=== PATIENT | female | born 1950 | race Caucasian/White ===

== ENCOUNTER → 2016-12-28 | Outpatient (CLI) | payer OTHER | LOC: BMCIMAGING 07:50 | PROVIDERS: ATTEND Family Medicine | DX: Z12.31 Encounter for screening mammogram for malignant neoplasm of breast (principal); Z80.3 Family history of malignant neoplasm of breast | CPT/HCPCS: G0202 ==

== ENCOUNTER → 2017-05-16 | Outpatient (CLI) | payer OTHER | LOC: FIMAGING 08:39 | PROVIDERS: ATTEND Family Medicine | DX: M12.9 Arthropathy, unspecified (principal); M51.37 Other intervertebral disc degeneration, lumbosacral region ==

== ENCOUNTER → 2017-07-19 | Outpatient (CLI) | payer OTHER | LOC: FIMAGING 07:56 | PROVIDERS: ATTEND Family Medicine | DX: M51.16 Intervertebral disc disorders with radiculopathy, lumbar region (principal); M51.17 Intervertebral disc disorders with radiculopathy, lumbosacral region; E80.4 Gilbert syndrome ==

== ENCOUNTER → 2017-11-09 | Outpatient (CLI) | payer OTHER | LOC: FIMAGING 12:04 | PROVIDERS: ATTEND Family Medicine | DX: N63.11 Unspecified lump in the right breast, upper outer quadrant (principal) ==

== ENCOUNTER → 2017-11-20 | Outpatient (CLI) | payer OTHER ==
[~2017-11-20] MED LIST: BUPIVACAINE 0.5% 10 ML SDV ONE; LIDOCAINE 1% 300 MG/30 ML SDV ONE; THROMBIN (BOVINE) 5,000 UNIT VIAL TP ONE
== END ==
LOC: FIMAGING 07:14
PROVIDERS: ATTEND Family Medicine
PROC: 07B53ZX Excision of Right Axillary Lymphatic, Percutaneous Approach, Diagnostic (ICD-10-PCS; principal; 2017-11-20)
PROC: 0HBT3ZX Excision of Right Breast, Percutaneous Approach, Diagnostic (ICD-10-PCS; principal; 2017-11-20)
DX: C50.511 Malignant neoplasm of lower-outer quadrant of right female breast (principal)

== ENCOUNTER → 2018-01-09 | Outpatient (CLI) | payer OTHER | LOC: FIMAGING 14:33 | PROVIDERS: ATTEND Surgery | DX: Z45.2 Encounter for adjustment and management of vascular access device (principal) ==

== ENCOUNTER 2018-01-18 22:57 | Inpatient (IN) | payer OTHER ==
[2018-01-18] MEDS ORDERED: NS 1,000 ML IV ONE (23:07)
--- NOTE | 2018-01-18 23:08 | EDPHY ---
H & P Stated Complaint: CP, ELEV HR/LAST CHEMO 6TH Time Seen by Provider: 01/18/18 23:08 HPI/ROS: HPI CHIEF COMPLAINT: Tachycardia HISTORY OF PRESENT ILLNESS: 67-year-old female presents emergency room with a fast heart rate. Patient states she noticed earlier this evening that her heart rate was very fast in the 120s. This is unusual for her. She states she just started chemotherapy. 1st dose of chemotherapy for breast cancer was on January 11. She does report that she has felt some chest discomfort. In the middle of her chest with this this evening. She denies any pleuritic pain, denies shortness of breath, denies fever. She has had some loose stools. Denies vomiting, denies feeling ill. She did have muscle aches and joint pain after 1st dose of chemotherapy. She is followed by Dr. Maharaj. Past Medical History: Denies significant medical history but recently diagnosed breast cancer. Patient states that his stage I. Past Surgical History: Lumpectomy left breast. Guzman dissection. Left chest port Social History: Denies drugs alcohol tobacco. Family History: Noncontributory ROS REVIEW OF SYSTEMS: 10 Systems were reviewed and negative with the exception of the elements mentioned in the history of present illness. Exam Constitutional nontoxic appearing, triage nursing summary reviewed, vital signs reviewed, awake/alert. Vital signs noted to be tachycardic at triage and hypoxic 91%. Eyes normal conjunctivae and sclera, EOMI, PERRLA. HENT normal inspection, atraumatic, moist mucus membranes, no epistaxis, neck supple/ no meningismus, no raccoon eyes. Respiratory clear to auscultation bilaterally, normal breath sounds, no respiratory distress, no wheezing. Cardiovascular tachycardia, regular rhythm, no murmur, no edema, distal pulses normal. Gastrointestinal soft, non-tender, no rebound, no guarding, normal bowel sounds, no distension, no pulsatile mass. Genitourinary no CVA tenderness. Musculoskeletal no midline vertebral tenderness, full range of motion, no calf swelling, no tenderness of extremities, no meningismus, good pulses, neurovascularly intact. Skin pink, warm, & dry, no rash, skin atraumatic. Neurologic awake, alert and oriented x 3, AAOx3, moves all 4 extremities equally, motor intact, sensory intact, CN II-XII intact, normal cerebellar, normal vision, normal speech. Psychiatric normal mood/affect. Heme/Lymph/Immune no lymphadenopathy. Differential diagnosis includes but is not limited to: Pulmonary embolism ACS , atypical chest pain, pneumothorax, pneumonia, pulmonary embolism, aortic dissection, congestive heart failure, tumor, musculoskeletal pain, esophageal pain, GERD, peptic ulcer disease, pancreatitis Medical Decision Making: Plan for this patient high suspicion for pulmonary embolism giving room air sat 91%, tachycardia, underlying breast cancer, on chemotherapy, hormone replacement. Will send a D-dimer but most likely will proceed with CT angiogram of the chest to rule out PE. Additionally rule out pericardial effusion. Rule out ACS. Will obtain EKG, chest x-ray, troponin, D- dimer. IV fluid bolus. Re-evaluation: EKG interpretation by me on record in [employer] system. Impression time of EKG 2313, sinus tach [address] depression in lead V3 V4. No ST elevation. ED x-ray chest one view: Negative for acute cardiopulmonary disease. Normal cardiac silhouette. Port appears in the appropriate position. No evidence of pneumonia. Patient's blood work reviewed. Negative troponin. Patient has a positive D- dimer. In the setting of tachycardia with positive D-dimer history of hormone replacement and cancer proceed with CT angiogram of the chest rule out PE. CT angiogram of the chest: This shows no evidence of pulmonary embolism. Called to me by Dr. Womack EKG interpretation by me on record in [employer] system. Impression time of EKG 1:38am, sinus rhythm rate of 84, T-wave inversion lead 3. Subtle T-wave inversion in AVF. No ST elevation. Otherwise unremarkable EKG. 0229: Patient re-evaluated she remains tachycardic. Heart rate currently 102. Blood pressure somewhat soft 95/50. When she exerts herself or gets Up and walks heart rate goes to 120s. Sinus tach. Given that she is getting chemotherapy, has a left shift with bandemia on her white count, urinalysis concerning for UT I. I have sent a urine culture. Blood cultures. 1 g Rocephin has been given. Plan on admitting to the hospital for ongoing tachycardia. She is afebrile here. She has received 2 L of fluid. Still remains tachycardic. She does not appear toxic. Source: Patient - Personal History Current Tetanus Diphtheria and Acellular Pertussis (TDAP): Yes - Medical/Surgical History Hx Asthma: No Hx Chronic Respiratory Disease: No Hx Diabetes: No Hx Cardiac Disease: No Hx Renal Disease: No Hx Cirrhosis: No Hx Alcoholism: No Hx HIV/AIDS: No Hx Splenectomy or Spleen Trauma: No Other PMH: HTN, post menopausal, BREAST CA R LYMPH NODES, NO BP OR STICK ON R. PSHx: laproscopy for "film over tubes" 33 ya - Social History Smoking Status: Never smoked Constitutional: Initial Vital Signs Temperature (C) 36.9 C 01/18/18 23:00 Heart Rate 115 H 01/18/18 23:00 Respiratory Rate 16 01/18/18 23:00 Blood Pressure 113/70 01/18/18 23:00 O2 Sat (%) 91 L 01/18/18 23:00 O2 Delivery Mode Room Air Allergies/Adverse Reactions: No Known Allergies Allergy (Verified 01/19/18 09:49) Home Medications: Medication Instructions Recorded Hydrochlorothiazide [HCTZ (*)] 12.5 mg PO DAILY 06/18/15 Acetaminophen [Tylenol 325mg (*)] 650 mg PO Q6HRS PRN 01/19/18 Docetaxel 1 each IV Q21D 01/19/18 Herbals/Supplements -Info Only 1 ea PO DAILY 01/19/18 Loratadine [Claritin 10 mg] 10 mg PO DAILY 01/19/18 Multivitamins [Multivitamin (*)] 1 each PO DAILY 01/19/18 Pegfilgrastim [Neulasta] 6 mg SQ Q21D 01/19/18 Prochlorperazine Maleate 10 mg PO TID PRN 01/19/18 [Compazine 10mg (*)] Medical Decision Making - Data Points Laboratory Results: Laboratory Results 01/18/18 23:45 01/18/18 23:45 Medications Given: Enoxaparin Sodium (Lovenox) 40 mg SC DAILY MAYA Stop: 07/18/18 15:29 Last Admin: 01/19/18 18:02 Dose: Not Given Sodium Chloride (Ns) 1,000 mls @ 75 mls/hr IV CONT MAYA Stop: 07/18/18 02:59 Last Admin: 01/19/18 04:57 Dose: 1,000 mls Ceftriaxone Sodium/Dextrose (Rocephin 1 Gm (Premix)) 50 mls @ 100 mls/hr IV DAILY MAYA PRN Reason: Protocol Stop: 02/18/18 21:59 Last Admin: 01/19/18 21:12 Dose: Not Given Lorazepam (Ativan) 0.5 mg PO Q8HRS PRN PRN Reason: Anxiety, Able to Take PO Stop: 07/18/18 06:42 Last Admin: 01/19/18 22:54 Dose: 0.25 mg Discontinued Medications Fluconazole (Diflucan) 150 mg PO ONCE ONE Stop: 01/19/18 06:43 Last Admin: 01/19/18 18:00 Dose: Not Given Sodium Chloride (Ns) 1,000 mls @ 0 mls/hr IV EDNOW ONE; Wide Open PRN Reason: Protocol Stop: 01/18/18 23:08 Last Admin: 01/18/18 23:42 Dose: 1,000 mls Sodium Chloride (Ns) 1,000 mls @ 0 mls/hr IV ONCE ONE PRN Reason: Wide Open Stop: 01/19/18 01:22 Last Admin: 01/19/18 01:26 Dose: 1,000 mls Ceftriaxone Sodium/Dextrose (Rocephin 1 Gm (Premix)) 50 mls @ 100 mls/hr IV EDNOW ONE PRN Reason: Protocol Stop: 01/19/18 02:57 Last Admin: 01/19/18 02:43 Dose: 50 mls Point of Care Test Results: Chemistry 01/18/18 23:48 POC Troponin I 0.01 ng/mL ng/mL (0.00-0.08) Departure - Departure Disposition: [facility] Acute Clinical Impression: Tachycardia UTI (urinary tract infection) Qualifiers: Urinary tract infection type: acute cystitis Hematuria presence: without hematuria Qualified Code(s): N30.00 - Acute cystitis without hematuria Condition: Fair
[2018-01-19 00:01] LABS: INR 1.18 (0.83-1.16); PROTIME(PATIENT) 15.2 SEC (12.0-15.0)
[2018-01-19 00:02] LABS: PLATELET COUNT 138 10^3/uL (150-400)
[2018-01-19] MEDS ORDERED: IOPAMIDOL (ISOVUE 370) 100 ML BTL IV ONE (00:19)
[2018-01-19] MEDS ORDERED: NS 1,000 ML IV ONE (01:21)
[2018-01-19] MEDS ORDERED: ONDANSETRON 4 MG/2 ML VIAL IVP PRN (02:51)
[2018-01-19] MEDS ORDERED: ACETAMINOPHEN 325 MG TAB PO PRN (02:51)
[2018-01-19] MEDS ORDERED: HYDROCODONE/APAP 5/325 TAB PO PRN (02:51)
[2018-01-19] MEDS ORDERED: NS 1,000 ML IV SCH (03:00)
[2018-01-19] MEDS ORDERED: FLUCONAZOLE 150 MG TAB PO ONE (06:42)
[2018-01-19] MEDS ORDERED: LORazepam 0.5 MG TAB PO PRN (06:43)
--- NOTE | 2018-01-19 06:51 | PDGENHP ---
History and Physical - Chief Complaint Tachycardia - History of Present Illness Source-patient provides majority of the history appears reliable. was at bedside supplements some details. EMR was reviewed and case discussed with ED provider. HPI-this is a very pleasant 67-year-old female followed by Dr. 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 Patient has recently started chemotherapy on 01/11/2018. She was given some a dose of Neulasta subsequently on pre following day. She denies any fevers, shortness of breath. She has struggled with nausea post treatment has been taking Zofran. She has not had any active vomiting recently. She does report some loose stools but no jodie diarrhea. She reports that she did experience some chest tightness with bending over. Patient states that the evening following a slow 1 mi walk after dinner patient bent over and subsequently developed her chest tightness. She went to go check her blood pressure and noted that her heart rate was in the 120s. She did not have any chest pain. She contacted the on-call oncology provider reported her symptoms that she thought that these could all be related to a side effect from the chemotherapy. Given the significant tachycardia it was recommended that she go to the emergency department for evaluation. Patient does note that over the last 1-2 days she has noted some mild dysuria without any hematuria. She denies any urgency or frequency. She she also notes that she has started to develop some cracking of her lips and potentially mouth source. Patient does note that she just got over on the side effects of myalgias and joint pain she experienced after chemotherapy. History Information - Allergies/Home Medication List Allergies/Adverse Reactions: No Known Allergies Allergy (Unverified 06/18/15 01:47) Home Medications: Estrogen-Methyltestos F.s. Tab 06/18/15 [Last Taken Unknown] HCTZ (RX) 06/18/15 [Last Taken Unknown] Medroxyprogesterone 06/18/15 [Last Taken Unknown] I have personally reviewed and updated: family history, medical history, social history, surgical history - Past Medical History Additional medical history: Invasive ductal carcinoma status post right breast lumpectomy and sentinel node biopsy. HTN. - Surgical History Additional surgical history: Right breast lumpectomy, lymph node dissection. Left power port. Exploratory laparoscopy. - Family History Additional family history: Atrial fib ablation, bladder cancer. Maternal grandmother with history of breast cancer. Mother did not have this diagnosis. - Social History Smoking Status: Never smoked Alcohol Use: None Drug Use: Marijuana (Patient recently tried some marijuana 3-1 CBD to THC in a vaporizer form without significant effect.) Additional social history: lives with . Cor status-full. Review of Systems Review of Systems: ROS: 10pt was reviewed & negative except for what was stated in HPI & below ( See HPI) Physical Exam Physical Exam: Selected Entries 01/18/18 23:00 Blood Pressure Automatic Method Heart Rate 115 H Respiratory 16 Rate O2 Sat (%) 91 L Temperature (C) 36.9 C Blood Pressure 113/70 Mean Arterial 84 Pressure (MAP) O2 Delivery Room Air Mode Temperature Oral Source Temp Pulse Resp BP Pulse Ox 36.9 C 96 16 119/64 92 01/19/18 04:07 01/19/18 04:07 01/19/18 04:07 01/19/18 04:07 01/19/18 04:07 Constitutional: no apparent distress, appears nourished, other (NAD. Pleasant elderly female is sitting up in bed. is at bedside.) Eyes: PERRL, anicteric sclera, EOMI, No scleral injection Ears, Nose, Mouth, Throat: dry mucous membranes, other (Dry chapped lips. No nasal discharge.), No poor dentition Cardiovascular: regular rate and rhythym, no murmur, rub, or gallop, pulses symmetric bilaterally, No edema Peripheral Pulses: 1+: dorsalis-pedis (R), dorsalis-pedis (L) Respiratory: no respiratory distress, no rales or rhonchi, clear to auscultation , No respiratory distress Gastrointestinal: normoactive bowel sounds, soft, non-tender abdomen, no palpable masses, No guarding Genitourinary: no bladder tenderness, No gomez in urethra Skin: warm, normal color, no rashes or abrasions Musculoskeletal: full muscle strength (Patient sits up independently moves all extremities.) Neurologic: AAOx3, sensation intact bilaterally, other (Grossly nonfocal exam.) , No facial droop Psychiatric: interacting appropriately, not anxious, not encephalopathic, thought process linear, No poor insight, No poor judgement, No poor memory Lab Data & Imaging Review 01/18/18 23:45 01/18/18 23:45 WBC 10.83 10^3/uL (3.80-9.50) H 01/18/18 23:45 RBC 4.13 10^6/uL (4.18-5.33) L 01/18/18 23:45 Hgb 13.0 g/dL (12.6-16.3) 01/18/18 23:45 Hct 38.2 % (38.0-47.0) 01/18/18 23:45 MCV 92.5 fL (81.5-99.8) 01/18/18 23:45 MCH 31.5 pg (27.9-34.1) 01/18/18 23:45 MCHC 34.0 g/dL (32.4-36.7) 01/18/18 23:45 RDW 12.8 % (11.5-15.2) 01/18/18 23:45 Plt Count 138 10^3/uL (150-400) L 01/18/18 23:45 MPV 10.0 fL (8.7-11.7) 01/18/18 23:45 Neut % (Auto) Not Reported 01/18/18 23:45 Lymph % (Auto) Not Reported 01/18/18 23:45 [place] % (Auto) Not Reported 01/18/18 23:45 Eos % (Auto) Not Reported 01/18/18 23:45 Baso % (Auto) Not Reported 01/18/18 23:45 Nucleat RBC Rel Count Not Reported 01/18/18 23:45 Absolute Neuts (auto) Not Reported 01/18/18 23:45 Absolute Lymphs (auto) Not Reported 01/18/18 23:45 Absolute Monos (auto) Not Reported 01/18/18 23:45 Absolute Eos (auto) Not Reported 01/18/18 23:45 Absolute Basos (auto) Not Reported 01/18/18 23:45 Absolute Nucleated RBC Not Reported 01/18/18 23:45 Immature Gran % Not Reported 01/18/18 23:45 Seg Neutrophils % 35.0 % 01/18/18 23:45 Band Neutrophils % 26.0 % 01/18/18 23:45 Lymphocytes % 19.0 % 01/18/18 23:45 Monocytes % 11.0 % 01/18/18 23:45 Eosinophils % 2.0 % 01/18/18 23:45 Basophils % 0.0 % 01/18/18 23:45 Metamyelocytes % 4.0 % 01/18/18 23:45 Myelocytes % 3.0 % 01/18/18 23:45 Promyelocytes % 0.0 % 01/18/18 23:45 Blast Cells % 0.0 % 01/18/18 23:45 Immature Gran # Not Reported 01/18/18 23:45 Absolute Seg Neuts 3.79 10^/uL (1.70-6.50) 01/18/18 23:45 Absolute Band Neuts 2.82 10^3/uL (0.00-0.70) H 01/18/18 23:45 Absolute Lymphocytes 2.06 10^3/uL (1.00-3.00) 01/18/18 23:45 Absolute Monocytes 1.19 10^3/uL (0.30-0.80) H 01/18/18 23:45 Absolute Eosinophils 0.22 10^3/uL (0.03-0.40) 01/18/18 23:45 Absolute Basophils 0.00 10^3/uL (0.02-0.10) L 01/18/18 23:45 Absolute Metamyelocyte 0.43 10^3/mL (0.00-0.00) H 01/18/18 23:45 Absolute Myelocytes 0.32 10^3/mL (0.00-0.00) H 01/18/18 23:45 Absolute Promyelocytes 0.00 10^3/uL (0.00-0.00) 01/18/18 23:45 Absolute Plasma Cells 0.00 10^3/uL (0.00-0.00) 01/18/18 23:45 Nucleated RBCs 1.0 /100 WBC (0-0) H 01/18/18 23:45 Absolute Blast Cells 0.00 10^3/uL (0.00-0.00) 01/18/18 23:45 Plasma Cells % 0.0 % 01/18/18 23:45 Platelet Estimate DECREASED (ADEQ) L 01/18/18 23:45 PT 15.2 SEC (12.0-15.0) H 01/18/18 23:45 INR 1.18 (0.83-1.16) H 01/18/18 23:45 APTT 27.3 SEC (23.0-38.0) 01/18/18 23:45 D-Dimer 0.68 ug/mLFEU (0.00-0.50) H 01/18/18 23:45 VBG Lactic Acid 1.1 mmol/L (0.7-2.1) 01/18/18 23:45 Sodium 132 mEq/L (135-145) L 01/18/18 23:45 Potassium 4.6 mEq/L (3.3-5.0) 01/18/18 23:45 Chloride 96 mEq/L (97-110) L 01/18/18 23:45 Carbon Dioxide 26 mEq/l (22-31) 01/18/18 23:45 Anion Gap 10 mEq/L (8-16) 01/18/18 23:45 BUN 14 mg/dL (7-23) 01/18/18 23:45 Creatinine 0.6 mg/dL (0.6-1.0) 01/18/18 23:45 Estimated GFR > 60 01/18/18 23:45 Glucose 115 mg/dL (70-100) H 01/18/18 23:45 Calcium 9.0 mg/dL (8.5-10.4) 01/18/18 23:45 Magnesium 1.8 mg/dL (1.6-2.3) 01/18/18 23:45 Total Bilirubin 1.0 mg/dL (0.1-1.4) 01/18/18 23:45 Conjugated Bilirubin 0.1 mg/dL (0.0-0.5) 01/18/18 23:45 Unconjugated Bilirubin 0.9 mg/dL (0.0-1.1) 01/18/18 23:45 AST 35 IU/L (14-46) 01/18/18 23:45 ALT 61 IU/L (9-52) H 01/18/18 23:45 Alkaline Phosphatase 69 IU/L (38-126) 01/18/18 23:45 POC Troponin I 0.01 ng/mL (0.00-0.08) 01/18/18 23:48 NT-Pro-B Natriuret Pep 87 pg/mL (0-125) 01/18/18 23:45 Total Protein 6.0 g/dL (6.3-8.2) L 01/18/18 23:45 Albumin 3.2 g/dL (3.5-5.0) L 01/18/18 23:45 Urine Color YELLOW 01/19/18 01:20 Urine Appearance HAZY 01/19/18 01:20 Urine pH 6.0 (5.0-7.5) 01/19/18 01:20 Ur Specific [place] 1.021 (1.002-1.030) 01/19/18 01:20 Urine Protein NEGATIVE (NEGATIVE) 01/19/18 01:20 Urine Ketones NEGATIVE (NEGATIVE) 01/19/18 01:20 Urine Blood 1+ (NEGATIVE) H 01/19/18 01:20 Urine Nitrate NEGATIVE (NEGATIVE) 01/19/18 01:20 Urine Bilirubin NEGATIVE (NEGATIVE) 01/19/18 01:20 Urine Urobilinogen NEGATIVE EU (0.2-1.0) 01/19/18 01:20 Ur Leukocyte Esterase 2+ (NEGATIVE) H 01/19/18 01:20 Urine RBC NONE SEEN /hpf (0-3) 01/19/18 01:20 Urine WBC 10-15 /hpf (0-3) H 01/19/18 01:20 Ur Epithelial Cells TRACE /lpf (NONE-1+) 01/19/18 01:20 Urine Glucose NEGATIVE (NEGATIVE) 01/19/18 01:20 Imaging Review: Portable Chest History: Chest Pain. Comparison: Compared to the previous study from 01/09/2018. Findings: Left internal jugular vein chest port has tip of catheter overlying the equator the right atrium. No airspace consolidative opacities are seen. There is no pneumothorax or pleural effusion. The heart and pulmonary vasculature are normal. Impression: No acute findings in the chest. preliminary CTA chest noted below. no pe, cyst liver?, degen Visualized and Interpreted Chest x-ray results: Yes Visualized and Interpreted imaging results: Yes Visualized and Interpreted EKG results: Yes EKG additional interpertation: ekg #1-sinus tachycardia to the 1 100s. Lad. T- wave inversion in lead 3 and otherwise nonspecific T-wave changes in the inferior leads. QTC is 436. ekg #2 - sinus rhythm in the 80s. Borderline T- wave changes in inferior leads are stable. QTC 413. Assessment & Plan Assessment: Pleasant 67-year-old female with history of invasive ductal carcinoma of the right breast who presents emergency department today with complaints of sudden onset of tachycardia and chest discomfort. #Tachycardia (Acute) - DX including chemo side effect vs. Early UTI. CTA of the chest negative for PE. #UTI (urinary tract infection) (Acute) - patient reports symptoms for the last several days as well as a history of UTIs remotely. UA shows 10-12 WBCs and 2+ leuk is site esterase. Urine cultures pending. She is also reporting some complaints consistint with the vaginitis which will treat with x1 fluconazole. #Hyponatremia - likely related to some hypovolemia. IV fluids overnight. Advance diet as tolerated and encourage oral hydration. #Hypoalbuminemia - likely related to patient's chronic illness as well as recent chemo. #Invasive ductal carcinoma breast - oncology notification as per day team. #Benign essential HTN - BMPs have been acceptable. Hold off on patient's HCTZ for now. FEN - IV fluids overnight to encourage oral hydration in the morning. Patient does appear ill but dry admits to decreased oral supplementation at home electrolytes are adequate did not require replacement except for sodium as noted above..Diet as tolerated. PPX-SCDs. Consider anticoagulation if patient should stay additional day. Cor status - FULL Disposition-patient admitted to the medical.
--- NOTE | 2018-01-19 13:31 | ASMTCMCOM ---
CM Note CM Note Notes: Patient seen in interdisciplinary rounds and plan of care reviewed. Recently started chemotherapy for breast cancer and developed Responding to medical interventions, checking labs and probable stress test. No current needs identified at this time. CM available should needs arise. Plan: To dc home with family support when medically cleared for discharge. Date Signed: 01/19/2018 01:10 PM Electronically Signed By:Billie Farr RN
[2018-01-19 13:58] LABS: PLATELET COUNT 148 10^3/uL (150-400)
[2018-01-19] MEDS ORDERED: PROCHLORPERAZINE MALEATE 10 MG TAB PO PRN (15:18)
--- NOTE | 2018-01-19 15:18 | HOSPPROG ---
Hospitalist Progress Note Assessment/Plan: 67-year-old female with history of invasive ductal carcinoma of the right breast admitted with chest pain and tachycardia #Tachycardia (Acute) - DDx: chemo side effect vs infectious vs neulasta side effect. Possible early UTI. CTA of the chest negative for PE. -HR improved after IVF's overnight, cont telemetry monitoring #Chest pain - this was with activity and she had associated nausea. HEART score 5. EKG reviewed: inferior T wave inversions noted. -repeat trop (neg x2) -exercise treadmill stress test with NM ordered for today, but per NM team is delayed until am #UTI (urinary tract infection) (Acute) - Dysuria endorsed, mild pyuria on ua. UCx pending -cont ceftriaxone while awaiting Cx data #Hyponatremia - likely hypovolemic, resolved with NS #Invasive ductal carcinoma breast - notified oncology of admission, plan for outpt f/u #Leukocytosis - suspect side effect of Neulasta, treating for possible UTI as above -trend wbc's #Benign essential HTN - Normotensive, holding HCTZ PPX- high risk, Lovenox Cor status - FULL Disposition- change to inpt for ongoing cardiac workup Subjective: Pt feels better. Currently chest pain free. No SOB. Notes the CP started while doing laundry when she bent over, felt heart palpitations and nausea along with some dizziness. No fevers/chills. +dysuria. Objective: Vital Signs Temp Pulse Resp BP Pulse Ox 36.8 C 92 15 117/57 L 92 01/19/18 08:00 01/19/18 08:00 01/19/18 08:00 01/19/18 08:00 01/19/18 08:00 Laboratory Results 01/19/18 12:04 01/19/18 12:04 01/18/18 01/19/18 01/20/18 05:59 05:59 05:59 Intake Total 1111 1050 Balance 1111 1050 PT 15.2 SEC (12.0-15.0) H 01/18/18 23:45 INR 1.18 (0.83-1.16) H 01/18/18 23:45 - Physical Exam Constitutional: no apparent distress Eyes: PERRL Ears, Nose, Mouth, Throat: moist mucous membranes Cardiovascular: regular rate and rhythym Respiratory: no respiratory distress, clear to auscultation Gastrointestinal: normoactive bowel sounds, soft, non-tender abdomen Skin: warm Musculoskeletal: full muscle strength Neurologic: AAOx3 Psychiatric: interacting appropriately ICD10 Worksheet Patient Problems: Problems Problem Status Onset Tachycardia Acute UTI (urinary tract infection) Acute
[2018-01-19] MEDS: ENOXAPARIN 40 MG/0.4 ML SYR SC SCH (18:02)
[2018-01-20 08:08] VITALS: BP 116/66
--- NOTE | 2018-01-20 08:34 | PDMN ---
Medical Necessity Medical necessity: MCG M89 CP and M300 UTI: 67 y/o w/ invasive ductal breast ca , started chemo 01/11/18, presents w/ acute tachycardia, UTI s/sx, hyponatremia and hypoalbuminemia. During hospitalization developed CP w/ associated nausea during activity, EKG showed inferior T wave inversions, repeat troponin and exercise treadmill stress test w/ NM pending. IV antibx cont for UTI, cont IV fluids. WBC increased from 10.83 on admit to 19.01 overnight. Switch to IP status per MD order 01/19/18 @ 1516 for cardiac workup, ongoing monitoring and treatment.
[2018-01-20 08:48] LABS: PLATELET COUNT 166 10^3/uL (150-400)
[2018-01-20] MEDS ORDERED: CETIRIZINE 10 MG TAB PO SCH (09:00)
[2018-01-20] MEDS: ENOXAPARIN 40 MG/0.4 ML SYR SC SCH (09:07)
--- NOTE | 2018-01-20 13:29 | ASDISCHSUM ---
Discharge Information Plan Status:Home with No Needs Medically Cleared to Leave:01/20/2018 Discharge Date:01/20/2018 CM D/C Disposition:Home, Routine, Self-Care ADT D/C Disposition:Home, Routine, Self-Care Projected Discharge Date:01/20/2018 Transportation at D/C:Family Discharge Delay Reason: Follow-Up Date:01/20/2018 Discharge Slot: Final Diagnosis: Placement Information Patient Contact Information Contact Name:ARACELI Relationship:Robinson Address:[address] City:[place] Alternate Phone: [facility]/Zip Code:[place] [address] Email: Financial Information Financial Class:Medicare Primary Plan Desc:MEDICARE OUTPATIENT Primary Plan Number:[id number] Secondary Plan Desc:ALLYSON BACK O Secondary Plan Number:[id number] Assessment Information LACE LACE Length of stay for Answers: 1 day current admission Acuity / Level of Answers: Yes Care: Did the patient have an inpatient admission? Comorbidities - select Answers: Any tumor (including all that apply lymphoma or leukemia) Other Notes: HTN # of Emergency department Answers: 1-2 visits in the last 6 months Score: 8 Date Signed: 01/20/2018 01:27 PM Electronically Signed By:MONIQUE Ruggiero [facility] CM Progress Note CM Note CM Note Notes: Patient seen in interdisciplinary rounds and plan of care reviewed. Recently started chemotherapy for breast cancer and developed Responding to medical interventions, checking labs and probable stress test. No current needs identified at this time. CM available should needs arise. Plan: To dc home with family support when medically cleared for discharge. Date Signed: 01/19/2018 01:10 PM Electronically Signed By:Billie Farr RN Case Management Discharge Plan Note Case Management Discharge Discharge Order Complete? Answers: Yes Patient to Obtain Answers: via Family Medications Transportation Arranged Answers: Family/Friends Family Notified Answers: Yes Discharge Comments Notes: Pt is discharging home today with no CM needs. Her is present. Date Signed: 01/20/2018 01:28 PM Electronically Signed By:MONIQUE Ruggiero Intervention Information Intervention Type:*MELVIN-Signed Date of Service:01/19/2018 11:32 AM Patient Type:Observation Staff Member:Tasha Guallpa Hours: Discipline: Severity: Comment:
--- NOTE | 2018-01-20 15:13 | CPR ---
DATE OF PROCEDURE: 01/20/2018 PROCEDURE: Nuclear treadmill stress test ORDERING PHYSICIAN: Jazmin Gonzales MD, hospitalist. REASON FOR TEST: Chest pain. EKG shows a regular sinus rhythm with a rate of 87, late anterior R-wave progression was noted. No i schemic changes noted. Resting blood pressure 134/74, resting heart rate 85. She is asymptomatic. STRESS PORTION: She was exercised according to the Omer protocol for a total of 6 minutes. Cardiol ite was injected at 1 minute prior to peak exercise, followed by saline flush. During the treadmill p ortion, ST slurring was noted with [address] depression throughout the test, she remained asymptomatic and talkative. Peak blood pressure 160/80, peak heart rate 155. Maximal MET level 6.9, total exerci se time 6 minutes. There were no arrhythmias noted. She remained asymptomatic throughout testing. RECOVERY: She did spontaneously recover. Blood pressure 134/76, heart rate 97. There were no arrhy thmias noted during recovery. She remained asymptomatic. EKG tracings returned to baseline. At this time, she currently is stable for nuclear imaging. /[id number]/MODL
--- NOTE | 2018-01-20 17:08 | GDS ---
DISCHARGE DIAGNOSES: 1. Tachycardia, resolved. 2. Chest pain, resolved. 3. Invasive ductal carcinoma of the breast. 4. Hyponatremia, resolved. 5. Leukocytosis, likely secondary to recent Neulasta injection. 6. History of hypertension, though currently off antihypertensives due to normal blood pressures. CONSULTANTS: None. HISTORY: For details, please see the History and Physical dated January 19, 2018. In brief, The patient is a 67-year-old female with history of invasive ductal carcinoma, who is follo wed by Dr. Maharaj at the [facility], and recently started chemotherapy on 2017. She was given a dose of Neulasta shortly thereafter. After taking a walk around the [place] with her , she was doing laundry, and when she bent over, she felt some chest tightness and tachycardia, and presented to the emergency department. She was admitted for further evaluation. HOSPITAL COURSE: The patient was admitted to the oncology unit. She received IV fluids overnight an d her tachycardia resolved. Her heart rate was no higher than the one-teens, and on discharge has im proved to a heart rate of 81. Her heart score was 5, and she underwent inpatient nuclear medicine st ress test in the setting of an abnormal EKG with inverted T-waves in the inferior leads. Her stress test was negative for evidence of infarct or ischemia. In addition, a CT pulmonary angiogram was per formed, which was negative for pulmonary embolism. She initially received a dose of IV ceftriaxone for a possible urinary tract infection. However, her urine culture was polymicrobial with 5 or more colony types, and her blood culture is negative to da te. She has been afebrile with no dysuria or urinary symptoms. Although her white count is increase d to 22,000 on the day of discharge, I suspect this may be related to her Neulasta injection, thus fu rther antibiotics are deferred. She is advised to return if she has fevers or more localized infecti ous symptoms. DISPOSITION: Patient is discharged home in stable condition. FOLLOWUP: 1. Dr. Maharaj at the [facility]. 2. Dr. Gema Freed, primary care. DISCHARGE MEDICATIONS: Please see [employer] for updated completed outpatient medication list. New me dications on discharge include Ativan 0.5 mg p.o. q.h.s. p.r.n., #10, no refills. We discussed disco ntinuation of her HCTZ, and she will continue all other outpatient medications as previously prescrib ed. /[id number]/MODL
--- NOTE | 2018-01-22 05:47 | CPEKG ---
Test Reason : OPEN Blood Pressure : / mmHG Vent. Rate : 084 BPM Atrial Rate : 083 BPM P-R Int : 142 ms QRS Dur : 072 ms QT Int : 349 ms P-R-T Axes : 063 049 -01 degrees QTc Int : 413 ms Sinus rhythm Borderline T abnormalities, inferior leads Confirmed by Josue Ferrer ([id number]) on 01/22/2018 5:47:01 AM Referred By: Confirmed By:Josue Ferrer
--- NOTE | 2018-01-22 05:47 | CPEKG ---
Test Reason : OPEN Blood Pressure : / mmHG Vent. Rate : 110 BPM Atrial Rate : 116 BPM P-R Int : 138 ms QRS Dur : 072 ms QT Int : 322 ms P-R-T Axes : 077 063 -37 degrees QTc Int : 436 ms Sinus tachycardia Probable left atrial enlargement Borderline T abnormalities, inferior leads Confirmed by Josue Ferrre ([id number]) on 01/22/2018 5:47:00 AM Referred By: Confirmed By:Josue Ferrer
== END 2018-01-20 14:00 | disposition home or self-care (01) | DRG 309 ==
LOC: F1N 01-19 03:32 → OBSVTOIN 01-19 15:16
PROVIDERS: ADMIT Family Medicine; ATTEND Family Medicine
DX: R00.0 Tachycardia, unspecified (principal); E87.1 Hypo-osmolality and hyponatremia; R07.9 Chest pain, unspecified; C50.911 Malignant neoplasm of unspecified site of right female breast; I10 Essential (primary) hypertension
CPT/HCPCS: 84484-PO; 96374; A9500; J0696; J1642; J1650; Q9967

== ENCOUNTER → 2018-05-17 | Outpatient (CLI) | payer OTHER | LOC: FIMAGING 11:59 | PROVIDERS: ATTEND Nurse Practitioner | DX: I82.4Z2 Acute embolism and thrombosis of unspecified deep veins of left distal lower extremity (principal) ==

== ENCOUNTER 2018-06-07 21:51 | Emergency (ER) | payer OTHER ==
--- NOTE | 2018-06-07 22:09 | EDPHY ---
H & P Stated Complaint: L SHOULDER PAIN, L SHOULDER SWELLING/RADIATION TODAY Time Seen by Provider: 06/07/18 22:09 HPI/ROS: HPI CHIEF COMPLAINT: Left shoulder discomfort. HISTORY OF PRESENT ILLNESS: 68-year-old female, history of breast cancer, presents to the emergency room with left shoulder pain. Patient states she is unclear if she injured her left shoulder however has left lateral shoulder pain worse when she moves. She denies any chest pain or shortness of breath. She only has pain when she abducts her left arm outward. Her pain is located left lateral shoulder. Also when you focally press over the biceps tendon insert and left lateral humeral head gives her discomfort. She has good distal pulse, good cap refill, no significant swelling. Denies fever, denies chest pain, denies shortness of breath. Denies productive cough. Patient does report to me she just returned from a trip from took [employer] ache goes was doing a rather large amount of swimming and trending water it is unclear if she strained her shoulder from this. Past Medical History: Breast cancer, hyponatremia, DVT on Eliquis. Current treatment for breast cancer right chest radiation. Past Surgical History: Left chest port. Social History: Denies drugs alcohol tobacco. Family History: Noncontributory ROS REVIEW OF SYSTEMS: 10 Systems were reviewed and negative with the exception of the elements mentioned in the history of present illness. Exam Constitutional triage nursing summary reviewed, vital signs reviewed, awake/ alert. Eyes normal conjunctivae and sclera, EOMI, PERRLA. HENT normal inspection, atraumatic, moist mucus membranes, no epistaxis, neck supple/ no meningismus, no raccoon eyes. Respiratory clear to auscultation bilaterally, normal breath sounds, no respiratory distress, no wheezing. Cardiovascular rate normal, regular rhythm, no murmur, no edema, distal pulses normal. Gastrointestinal soft, non-tender, no rebound, no guarding, normal bowel sounds, no distension, no pulsatile mass. Genitourinary no CVA tenderness. Musculoskeletal left upper extremity: Neurovascular intact with good distal pulse, good cap refill, good engine head repairer strength, focally tender left lateral shoulder , axillary nerve intact. Tender palpation with a bicep tendon inserts. No abnormal swelling. Left chest port site does not appear infected or swelling around it. No redness no warmth. no midline vertebral tenderness, full range of motion, no calf swelling, no tenderness of extremities, no meningismus, good pulses, neurovascularly intact. Skin pink, warm, & dry, no rash, skin atraumatic. Neurologic awake, alert and oriented x 3, AAOx3, moves all 4 extremities equally, motor intact, sensory intact, CN II-XII intact, normal cerebellar, normal vision, normal speech. Psychiatric normal mood/affect. Heme/Lymph/Immune no lymphadenopathy. Differential Diagnosis: Includes but is not limited to: Musculoskeletal left shoulder pain, rotator cuff injury, frozen shoulder, biceps tendinitis, DVT Medical Decision Making: Plan for this patient x-ray left shoulder, I have offered her pain medicine however she has declined. She agrees for 1 g of Tylenol. Ultrasound left upper extremity rule out DVT given that she has a left chest port. Patient does not have any chest pain or shortness of breath or pleuritic pain. Re-evaluation: 2350: X-ray left shoulder reviewed negative for acute traumatic injury or bony abnormality no lytic lesion. Ultrasound of the left upper extremity reviewed this shows internal jugular vein thrombus. The patient is already on Xarelto. The internal jugular vein thrombus is most likely due to the port. The patient does not have any symptoms she denies any facial pain, facial swelling, headache symptoms. Is unclear when the internal jugular vein clot was formed. She has had a port since December. I discussed the case with Dr. Avila, about the patient's internal jugular vein thrombus and treatment options. This does not need to be acutely treated as she is already on Xarelto and additionally she has a chest port is most likely the cause of the IJ clot. She has form collaterals. I discussed this at length with the patient. She understands should follow up with her oncologist, additionally will placed in a sling for comfort for musculoskeletal left lateral shoulder discomfort. Clinically on exam I do feel that she is left lateral shoulder discomfort which is musculoskeletal nature most likely from a shoulder strain. Sling will be provided. She does feel better after Tylenol 1 g here in emergency room. Recommend ice. Sling, anti-inflammatory pain medicine. Continue her Xarelto. Follow up with her Oncology If she has any further questions or concerns or symptoms return emergency room she is comfortable this. Source: Patient - Personal History Current Tetanus Diphtheria and Acellular Pertussis (TDAP): Yes - Medical/Surgical History Hx Asthma: No Hx Chronic Respiratory Disease: No Hx Diabetes: No Hx Cardiac Disease: No Hx Renal Disease: No Hx Cirrhosis: No Hx Alcoholism: No Hx HIV/AIDS: No Hx Splenectomy or Spleen Trauma: No Other PMH: HTN, post menopausal, BREAST CA R LYMPH NODES, NO BP OR STICK ON R, CHEMO 04/2018, RADIATION 05/2018. PSHx: laproscopy for "film over tubes" 33 ya - Social History Smoking Status: Never smoked Constitutional: Initial Vital Signs Temperature (C) 36.9 C 06/07/18 21:59 Heart Rate 96 06/07/18 21:59 Respiratory Rate 16 06/07/18 21:59 Blood Pressure 157/135 H 06/07/18 21:59 O2 Sat (%) 94 06/07/18 21:59 O2 Delivery Mode Room Air Allergies/Adverse Reactions: No Known Allergies Allergy (Verified 01/19/18 09:49) Home Medications: Medication Instructions Recorded Xarelto 15mg (*) BID 06/07/18 Medical Decision Making - Diagnostics Imaging Results: Imaging Impressions Extremity Venous Study 06/07/18 22:19 Impression: 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 Results called to Dr. Moreno at 11:23 PM. Shoulder X-Ray 06/07/18 22:19 Impression: No source for pain identified.. - Data Points Medications Given: Discontinued Medications Acetaminophen (Tylenol) 1,000 mg PO EDNOW ONE Stop: 06/07/18 22:22 Last Admin: 06/07/18 22:26 Dose: 500 mg Departure - Departure Disposition: Home, Routine, Self-Care Clinical Impression: Left shoulder strain Qualifiers: Encounter type: initial encounter Qualified Code(s): S46.912A - Strain of unspecified muscle, fascia and tendon at shoulder and upper arm level, left arm , initial encounter Condition: Good Instructions: Rotator Cuff Injury (ED) Additional Instructions: 1. Sling for comfort. 2. Anti-inflammatory pain medicine like Tylenol for pain control 3. Ice pack. 4. Follow up with your oncologist 5. If continues to bother follow up with Orthopedics. Referrals: Gema Freed MD [Primary Care Provider] - As per Instructions Andre Zamarripa MD [Medical Doctor] - As per Instructions
[2018-06-07] MEDS ORDERED: ACETAMINOPHEN 500 MG TAB PO ONE (22:21)
[2018-06-08 00:26] VITALS: BP 144/87
== END 2018-06-08 00:26 | disposition home or self-care (01) ==
DX: S46.912A Strain of unspecified muscle, fascia and tendon at shoulder and upper arm level, left arm, initial encounter (principal)

== ENCOUNTER → 2018-07-23 | Outpatient (CLI) | payer OTHER | LOC: FIMAGING 09:48 | PROVIDERS: ATTEND Internal Medicine Hematology & Oncology | DX: Z13.820 Encounter for screening for osteoporosis (principal); M85.89 Other specified disorders of bone density and structure, multiple sites; Z78.0 Asymptomatic menopausal state ==

== ENCOUNTER → 2018-09-18 | Outpatient (CLI) | payer OTHER | LOC: FIMAGING 07:11 | PROVIDERS: ATTEND Internal Medicine Hematology & Oncology | DX: I82.C22 Chronic embolism and thrombosis of left internal jugular vein (principal); I82.712 Chronic embolism and thrombosis of superficial veins of left upper extremity ==